=== PATIENT | male | born 1995 | race Caucasian/White ===

== ENCOUNTER 2020-10-14 14:44 | Emergency (ER) | payer SELFPAY ==
[2020-10-14 14:55] VITALS: BP 131/84
--- NOTE | 2020-10-14 16:02 | XRay Report ---
LEFT FOOT 3 VIEW(S) INDICATION / CLINICAL INFORMATION: foot pain COMPARISON: None available. FINDINGS: BONES / JOINT(S): No acute fracture or subluxation. No significant arthritis. SOFT TISSUES: No significant abnormality. ADDITIONAL FINDINGS: None. IMPRESSION: No acute osseous abnormality. Signer Name: Salomón Coronado MD Signed: 10/14/2020 3:58 PM Workstation Name: [id number]
--- NOTE | 2020-10-14 16:19 | Emergency Department Report ---
ED Lower Extremity HPI - General Chief Complaint: Laceration/Recheck/Suture Stated Complaint: SUTURE REMOVAL; EAR PAIN; L FOOT PAIN Time Seen by Provider: 10/14/20 15:12 Source: patient Mode of arrival: Ambulatory Limitations: No Limitations - History of Present Illness Initial Comments: This is a 45-year-old male nontoxic, well nourished in appearance, no acute signs of distress presents to the ED with c/o of left foot pain x 2 weeks. Patient stated that a floor flower landed on his foot last week. Patient is also here for secondary complaint of suture removal. Patient received stitches in another facility and is not sure how many stitches were placed or the procedure itself. Patient also has a complaint of right earache. Patient denies any ear drainage or mastoid tenderness. Patient denies any hearing changes or difficulty hearing. Patient denies any acute injuries or trauma. Patient denies any numbness, tingling, fever, chills, nausea, vomiting, chest pain, shortness of breath, headache, stiff neck. Patient denies any joint swelling or joint redness. Patient denies decreased range of motion. Patient stated has decreased gait due to pain. Patient denies any allergies or significant past medical history. MD Complaint: foot injury -: week(s) Injury: Foot: Left Place: street/outdoors Severity: mild Severity scale (0 -10): 3 Improves With: nothing Worsens With: palpation Associated Symptoms: ambulatory. denies: snap/pop sensation, swelling, numbness, tingling, unable to bear weight, able to partially bear weight - Related Data Previous Rx's Medication Instructions Recorded Last Taken Type Amoxicillin [Amoxicillin TAB] 875 mg PO BID #20 tablet 10/14/20 Unknown Rx Naproxen 500 mg PO Q12H PRN #12 tablet 10/14/20 Unknown Rx Allergies Allergy/AdvReac Type Severity Reaction Status Date / Time No Known Allergies Allergy Unverified 10/14/20 14:52 ED Review of Systems ROS: Stated complaint: SUTURE REMOVAL; EAR PAIN; L FOOT PAIN Other details as noted in HPI Constitutional: denies: chills, fever Eyes: denies: eye pain, eye discharge, vision change ENT: ear pain. denies: throat pain Respiratory: denies: cough, shortness of breath, wheezing Cardiovascular: denies: chest pain, palpitations Endocrine: no symptoms reported Gastrointestinal: denies: abdominal pain, nausea, diarrhea Genitourinary: denies: urgency, dysuria Musculoskeletal: denies: back pain, joint swelling, arthralgia Skin: denies: rash, lesions Neurological: denies: headache, weakness, paresthesias Psychiatric: denies: anxiety, depression Hematological/Lymphatic: denies: easy bleeding, easy bruising ED Past Medical Hx - Past Medical History Previous Medical History?: No - Surgical History Hx Appendectomy: Yes - Social History Smoking Status: Never Smoker Substance Use Type: None - Medications Home Medications: Home Medications Medication Instructions Recorded Confirmed Last Taken Type Amoxicillin [Amoxicillin TAB] 875 mg PO BID #20 tablet 10/14/20 Unknown Rx Naproxen 500 mg PO Q12H PRN #12 tablet 10/14/20 Unknown Rx ED Physical Exam - General Limitations: No Limitations General appearance: alert, in no apparent distress - Head Head exam: Present: atraumatic, normocephalic - Eye Eye exam: Present: normal appearance - Expanded ENT Exam Expanded Ear exam: Present: normal external inspection TM/Canal exam: Erythema: Left TM, Bulging: Left TM Mouth exam: Present: normal external inspection - Neck Neck exam: Present: normal inspection, full ROM. Absent: tenderness, meningismus, lymphadenopathy - Respiratory Respiratory exam: Absent: respiratory distress - Cardiovascular Cardiovascular Exam: Present: regular rate - Extremities Exam Extremities exam: Present: normal inspection, full ROM, tenderness, normal capillary refill. Absent: joint swelling, calf tenderness - Expanded Lower Extremity Exam Left Hip exam: Present: normal inspection, full ROM. Absent: tenderness, swelling Upper Leg exam: Present: normal inspection, full ROM. Absent: tenderness, swelling Knee exam: Present: normal inspection, full ROM. Absent: tenderness, swelling Lower Leg exam: Present: normal inspection, full ROM. Absent: tenderness, swelling Ankle exam: Present: normal inspection, full ROM. Absent: tenderness, swelling Foot/Toe exam: Present: full ROM, tenderness. Absent: swelling, abrasion, laceration, ecchymosis, deformity, crepidus, dislocation, erythema, amputation, foreign body, calcaneal tenderness, tenderness at base of 5th metatarsal, nail avulsion, subungual hematoma Neuro vascular tendon exam: Present: no vascular compromise Gait: Positive: observed and normal 1 - Pain here - Back Exam Back exam: Present: normal inspection, full ROM. Absent: tenderness, CVA tenderness (R) - Neurological Exam Neurological exam: Present: alert, oriented X3, normal gait - Psychiatric Psychiatric exam: Present: normal affect, normal mood - Skin Skin exam: Present: warm, dry, intact, normal color. Absent: rash ED Course Vital Signs 10/14/20 14:52 Temperature 97.8 F Pulse Rate 115 H Respiratory 16 Rate Blood Pressure 131/84 O2 Sat by Pulse 99 Oximetry - Reevaluation(s) Reevaluation #1: 10/14/20 16:18 Patient is speaking in full sentences with no signs of distress noted. ED Lower Extremity MDM - Radiology Data Referring Physician: KERRY RUBIN Patient Name: ROJELIO GILLESPIE Date of : 1995 Sex: Male Report Date: 2020-10-14 Report Status: Finalized [facility] [address] [place] [address] XRay Report Signed Patient: ROJELIO GILLESPIE MR#: [id number] : 0 1995 Acct:[id number] Age/Sex: 25 / M ADM Date: 10/14/20 Loc: ED Attending Dr: Ordering Physician: KERRY RUBIN NP Date of Service: 10/14/20 Procedure(s): XR foot 3+V LT Accession Number(s): [id number] cc: KERRY RUBIN NP Fluoro Time In Minutes: LEFT FOOT 3 VIEW(S) INDICATION / CLINICAL INFORMATION: foot pain COMPARISON: None available. FINDINGS: BONES / JOINT(S): No acute fracture or subluxation. No significant arthritis. SOFT TISSUES: No significant abnormality. ADDITIONAL FINDINGS: None. IMPRESSION: No acute osseous abnormality. Signer Name: Jeffrey Coronado MD Signed: 10/14/2020 3:58 PM Workstation Name: [id number] Transcribed By: SS Dictated By: JEFFREY CORONADO Electronically Authenticated By: JEFFREY CORONADO Signed Date/Time: 10/14/201557 DD/ 57 TD/TT: - Medical Decision Making This is a 25-year-old male that presents with left foot strain. Patient is stable and was examined by me. Patient was instructed to follow-up with the facility that placed the stitches. Exam suture site is unremarkable. No cell ulitis or swelling. I referred patient to an orthopedic doctor for further evaluation for possible MRI. X-ray has been obtained and dictated by the radiologist. Patient is notified of the x-ray report with noted by the patient. Patient does have normal gait with no tenderness and no joint swelling. No ecchymosis. no joint redness or swelling. Not warm to touch. No signs of cellulites present. Patient was instructed to RICE therapy. At time of discharge, the patient does not seem toxic or ill in appearance. No acute signs of distress noted. Patient agrees to discharge treatment plan of care. No further questions noted by the patient. Critical care attestation.: If time is entered above; I have spent that time in minutes in the direct care of this critically ill patient, excluding procedure time. ED Disposition Clinical Impression: Strain of left foot Qualifiers: Encounter type: initial encounter Qualified Code(s): S96.912A - Strain of unspecified muscle and tendon at ankle and foot level, left foot, initial encounter Otitis media Qualifiers: Otitis media type: unspecified Chronicity: acute Qualified Code(s): H66.90 - Otitis media, unspecified, unspecified ear Disposition: - TO HOME OR SELFCARE Is pt being admited?: No Does the pt Need Aspirin: No Condition: Stable Instructions: RICE Therapy for Routine Care of Injuries, [id number] Additional Instructions: Follow-up with a orthopedic doctor in 3-5 days or if symptoms worsen and continue return to emergency room as soon as possible. No physical activity that extremity until cleared by orthopedic doctor Prescriptions: Amoxicillin [Amoxicillin TAB] 875 mg PO BID #20 tablet Naproxen 500 mg PO Q12H PRN #12 tablet PRN Reason: Pain , Severe (7-10) Referrals: PRIMARY MD JOSEPH [Referring] - 3-5 Days PHILLIP WATT MD [Staff Physician] - 3-5 Days MEÑO LESLIE MD [Staff Physician] - 3-5 Days Time of Disposition: 16:21
== END 2020-10-14 16:46 | disposition home or self-care (01) ==
LOC: ED 14:44
DX: S96.912A Strain of unspecified muscle and tendon at ankle and foot level, left foot, initial encounter (principal); H66.90 Otitis media, unspecified, unspecified ear; Z90.49 Acquired absence of other specified parts of digestive tract; Z79.899 Other long term (current) drug therapy; X58.XXXA Exposure to other specified factors, initial encounter; Y93.89 Activity, other specified; Y92.89 Other specified places as the place of occurrence of the external cause; Y99.8 Other external cause status
CPT/HCPCS: 99283